=== PATIENT | female | born 1995 | race Caucasian/White ===

== ENCOUNTER 2024-07-05 18:51 | Emergency (ER) | payer OTHER ==
[~2024-07-05] VITALS: Ht 162.6 cm; Wt 60.0 kg
[~2024-07-05 18:51] MED LIST: CIPROFLOXACN500 MG PO; DICYCLOMINE HYD10 MG PO; METRONIDAZOLE500 MG PO; TRAMADOL HYDROC50 M1 PO; ZOFRAN4 MG/TAB PO
[2024-07-05] MEDS ORDERED: SODIUM CHLORIDE 0.9% 1,000 ML IV ONE (19:05)
[2024-07-05 19:08] VITALS: BP 122/92
[2024-07-05] MEDS ORDERED: ONDANSETRON HCl 4 MG/2 ML SDV IV ONE (19:10)
[2024-07-05] MEDS ORDERED: DiphenhydrAMINE HCL 50 MG/ML SDV IV ONE (19:10)
[2024-07-05] MEDS ORDERED: FAMOTIDINE 10MG/ML 2ML SDV IV ONE (19:10)
[2024-07-05 20:05] VITALS: BP 117/77
[2024-07-05] MEDS ORDERED: HYDROmorphone HCL 2 MG/AMP IV ONE (20:15)
[2024-07-05] MEDS ORDERED: FIORICET PO (20:27)
[2024-07-05] MEDS ORDERED: MORPHINE SULFAT30 M1 PO (20:30)
[2024-07-05] MEDS ORDERED: PROMETHAZINE HY25 M1 PO (20:30)
[2024-07-05] MEDS ORDERED: LYRICA50 MG PO (20:31)
[2024-07-05] MEDS ORDERED: BENADRYL 25MG C25 MG PO (20:31)
[2024-07-05] MEDS ORDERED: MS CONTIN15 M1 PO (20:31)
[2024-07-05 20:37] LABS: URINE BILIRUBIN - DIPSTICK Negative (NEGATIVE); URINE BLOOD DIPSTICK Trace-intact (NEGATIVE); URINE GLUCOSE - DIPSTICK Negative (NEGATIVE); URINE KETONE Negative (NEGATIVE); URINE LEUK ESTERASE Negative (NEGATIVE); URINE NITRITE - DIPSTICK Negative (Negative); URINE PROTEIN - DIPSTICK Negative (NEG-TRACE); URINE UROBILINOGEN - DIPSTICK 0.2 E.U./dL (0.2)
[2024-07-05 20:38] LABS: URINE COLOR Yellow
[2024-07-05 21:05] VITALS: BP 117/77
== END 2024-07-05 21:05 | disposition home or self-care (01) ==
LOC: ED 18:51
PROVIDERS: Nurse Practitioner Family
DX: R11.10 Vomiting, unspecified (principal); G89.4 Chronic pain syndrome; Q79.60 Ehlers-Danlos syndrome, unspecified